=== PATIENT | female | born 1945 | race Caucasian/White ===

== ENCOUNTER 2017-05-15 08:53 | Emergency (ER) | payer OTHER ==
[~2017-05-15] VITALS: Ht 152.4 cm; Wt 83.9 kg
[~2017-05-15 08:53] MED LIST: ALBU90I INH; ALBU90OI INH; ALBU90OI6; ALBU90OI6 INH; ALBU90OI61 INH; ALPR.25 PO; ASPI325; ASPI325 PO; ASPI325EC PO; ATEN25; ATEN50; ATOR40TA; ATOR80 PO; BENZ100A PO; CODGUAEL PO; CYCL10 PO; DOXY100 PO; DULO30; DULO60 PO; ERYT333ERA PO; ESCI20; ESOM20; ESOM20 PO; FISH1000 PO; FLUO10 PO; FLUSAL5005 IH; HYDACE5 PO; LISI10; LISI20 PO; LISI5 PO; LORA10ER; LOVA40 PO; Lisinopril2.5 MG; MAGCHL64ER PO; MECL25 PO; METF500; METF500 PO; METF500C PO; METO50 PO; METO50ER PO; Norco 5-325 Ta1 EACH PO; PRED20 PO; PROM25 PO; Percocet 5-3251 EACH PO; Prednisone50 MG PO; ROSU10TA PO; RXCYCL10 PO; RXHYDACE PO; SPIR25 PO; TELM20 PO; TIOT18 INH; TRIAOI IH; Ultram50 MG PO; Valium5 MG PO
[2017-05-15] MEDS ORDERED: Norco 5-325 Ta1 EACH PO (11:26)
== END 2017-05-15 11:38 | disposition home or self-care (01) ==
LOC: ER 08:53
DX: S62.512A Displaced fracture of proximal phalanx of left thumb, initial encounter for closed fracture (principal); J45.909 Unspecified asthma, uncomplicated; E11.9 Type 2 diabetes mellitus without complications; I10 Essential (primary) hypertension; E78.00 Pure hypercholesterolemia, unspecified; V89.2XXA Person injured in unspecified motor-vehicle accident, traffic, initial encounter
CPT/HCPCS: 29125; 73030; 73110; 73130; 99283

== ENCOUNTER 2017-05-18 07:52 | Emergency (ER) | payer OTHER ==
[~2017-05-18] VITALS: Ht 152.4 cm; Wt 83.9 kg
== END 2017-05-18 09:19 | disposition home or self-care (01) ==
LOC: ER 07:52
DX: S62.512A Displaced fracture of proximal phalanx of left thumb, initial encounter for closed fracture (principal); S63.501A Unspecified sprain of right wrist, initial encounter; J45.909 Unspecified asthma, uncomplicated; E11.9 Type 2 diabetes mellitus without complications; I10 Essential (primary) hypertension; E78.00 Pure hypercholesterolemia, unspecified; V89.2XXA Person injured in unspecified motor-vehicle accident, traffic, initial encounter
CPT/HCPCS: 29125; 73110; 73130; 99283

== ENCOUNTER 2017-05-20 13:03 | Emergency (ER) | payer OTHER ==
[~2017-05-20] VITALS: Ht 152.4 cm; Wt 83.9 kg
== END 2017-05-20 17:20 | disposition home or self-care (01) ==
LOC: ER 13:03
DX: S62.512D Displaced fracture of proximal phalanx of left thumb, subsequent encounter for fracture with routine healing (principal); J45.909 Unspecified asthma, uncomplicated; E11.9 Type 2 diabetes mellitus without complications; I10 Essential (primary) hypertension; E78.00 Pure hypercholesterolemia, unspecified; Z88.0 Allergy status to penicillin; Z88.1 Allergy status to other antibiotic agents; Z79.899 Other long term (current) drug therapy; Z79.82 Long term (current) use of aspirin; V89.2XXA Person injured in unspecified motor-vehicle accident, traffic, initial encounter
CPT/HCPCS: 29125; 99282

== ENCOUNTER 2017-06-09 08:13 | Emergency (ER) | payer OTHER ==
[~2017-06-09] VITALS: Ht 165.1 cm; Wt 81.7 kg
[2017-06-09 10:33] LABS: BASOPHILS ABSOLUTE AUTO 0.05 K/mm3 (0.00-0.23); BASOPHILS PERCENT AUTO 1 % (0-2); EOSINOPHILS ABSOLUTE AUTO 0.03 K/mm3 (0.00-0.68); EOSINOPHILS PERCENT AUTO 0 % (0-6); Hematocrit 37.4 % (33.0-51.0); Hemoglobin 11.4 g/dL (11.5-16.0); IMMATURE GRAN ABSOLUTE AUTO 0.05 K/mm3 (0.00-0.10); IMMATURE GRAN PERCENT AUTO 1 % (0-1); LYMPHOCYTES ABSOLUTE AUTO 0.96 K/mm3 (0.84-5.20); LYMPHOCYTES PERCENT AUTO 12 % (21-46); MONOCYTES ABSOLUTE AUTO 0.59 K/mm3 (0.16-1.47); MONOCYTES PERCENT AUTO 8 % (4-13); Mean Corpuscular HGB Conc 30.5 g/dL (31.5-36.5); Mean Corpuscular Volume 88 fL (80-100); NEUTROPHILS ABSOLUTE AUTO 6.15 K/mm3 (1.96-9.15); NEUTROPHILS PERCENT AUTO 79 % (41-73); RDW Coefficient Variation 13.6 % (11.7-14.2); RDW Standard Deviation 44.2 fL (35.1-46.3); Red Blood Cell Count 4.23 M/mm3 (3.80-5.20); White Blood Cell Count 7.83 K/mm3 (4.00-11.30)
[2017-06-09] MEDS ORDERED: Prednisone20 MG PO (10:42)
[2017-06-09 10:51] LABS: Alanine Aminotransfer (ALT/SGP 12 U/L (12-78); Albumin, Blood 2.5 g/dL (3.4-5.0); Albumin/Globulin Ratio 0.5 (0.8-1.8); Alk Phos 36 U/L (50-136); Anion Gap 7 mmol/L (6-16); Aspartate Aminotrans (AST/SGOT 6 U/L (12-37); Bilirubin, Total 0.5 mg/dL (0.1-1.0); Blood Urea Nitrogen 9 mg/dL (8-24); Bun/Creatinine Ratio 11.6 (12.0-20.0); CO2, Blood 25 mmol/L (21-32); Calcium, Blood 9.2 mg/dL (8.5-10.1); Chloride, Blood 106 mmol/L (98-108); Creatinine, Blood 0.78 mg/dL (0.40-1.00); Globulin, Blood 4.6 g/dL (2.2-4.0); Glomerular Filtration Rate >60 (60-); Glucose, Blood 177 mg/dL (70-99); Potassium, Blood 4.3 mmol/L (3.5-5.5); Sodium, Blood 138 mmol/L (136-145); Total Protein, Blood 7.1 g/dL (6.4-8.2)
[2017-06-09 11:07] LABS: Mean Platelet Volume 11.3 fL (9.1-12.4); Platelet Count 162 K/mm3 (150-400)
== END 2017-06-09 10:56 | disposition home or self-care (01) ==
LOC: ER 08:13
PROVIDERS: Physician Assistant
DX: M47.816 Spondylosis without myelopathy or radiculopathy, lumbar region (principal); M51.36 Other intervertebral disc degeneration, lumbar region; J45.909 Unspecified asthma, uncomplicated; E11.9 Type 2 diabetes mellitus without complications; I10 Essential (primary) hypertension; E78.00 Pure hypercholesterolemia, unspecified; Z79.899 Other long term (current) drug therapy; Z79.82 Long term (current) use of aspirin
CPT/HCPCS: 36415; 72131; 80053; 85025; 96374; 99284; J1885

== ENCOUNTER 2017-07-15 01:57 | Emergency (ER) | payer OTHER ==
[~2017-07-15] VITALS: Ht 165.1 cm; Wt 81.7 kg
[~2017-07-15 01:57] MED LIST changes: +Prednisone20 MG PO
[2017-07-15] MEDS ORDERED: METPRE4DP PO (04:18)
[2017-07-15] MEDS ORDERED: Robaxin-750750 MG PO (04:18)
[2017-07-15] MEDS ORDERED: Acetaminophen-1 EAC1 PO (04:18)
== END 2017-07-15 04:30 | disposition home or self-care (01) ==
LOC: ER 01:57
DX: M54.42 Lumbago with sciatica, left side (principal); E11.9 Type 2 diabetes mellitus without complications; I10 Essential (primary) hypertension; I25.10 Atherosclerotic heart disease of native coronary artery without angina pectoris; I25.2 Old myocardial infarction; J45.909 Unspecified asthma, uncomplicated; K21.9 Gastro-esophageal reflux disease without esophagitis; F32.9 Major depressive disorder, single episode, unspecified; E78.5 Hyperlipidemia, unspecified; Z79.899 Other long term (current) drug therapy; Z79.82 Long term (current) use of aspirin; Z79.51 Long term (current) use of inhaled steroids; Z88.0 Allergy status to penicillin; Z88.1 Allergy status to other antibiotic agents
CPT/HCPCS: 99283

== ENCOUNTER 2017-07-23 05:18 | Emergency (ER) | payer OTHER ==
[~2017-07-23] VITALS: Ht 165.1 cm; Wt 79.8 kg
[~2017-07-23 05:18] MED LIST changes: +Acetaminophen-1 EAC1 PO; +METPRE4DP PO; +Robaxin-750750 MG PO
[2017-07-23] MEDS ORDERED: Neurontin 300300 MG PO (06:30)
== END 2017-07-23 06:49 | disposition home or self-care (01) ==
LOC: ER 05:18
DX: M54.42 Lumbago with sciatica, left side (principal); J45.909 Unspecified asthma, uncomplicated; E11.9 Type 2 diabetes mellitus without complications; I10 Essential (primary) hypertension; E78.00 Pure hypercholesterolemia, unspecified; Z88.0 Allergy status to penicillin; Z88.1 Allergy status to other antibiotic agents; Z79.899 Other long term (current) drug therapy; Z79.82 Long term (current) use of aspirin
CPT/HCPCS: 96372; 99284; J3010

== ENCOUNTER 2018-06-23 06:34 | Emergency (ER) | payer OTHER ==
[~2018-06-23] VITALS: Ht 165.1 cm; Wt 83.9 kg
[~2018-06-23 06:34] MED LIST changes: +Neurontin 300300 MG PO
[2018-06-23] MEDS ORDERED: TUMS500 MG PO (06:54)
[2018-06-23] MEDS ORDERED: Vitamin D400 UNI2 PO (06:55)
[2018-06-23] MEDS ORDERED: SERT100 PO (06:55)
[2018-06-23] MEDS ORDERED: Fish Oil Conc1000 MG PO (06:56)
== END 2018-06-23 07:45 | disposition home or self-care (01) ==
LOC: ER 06:34
DX: S93.602A Unspecified sprain of left foot, initial encounter (principal); E11.9 Type 2 diabetes mellitus without complications; I10 Essential (primary) hypertension; I25.2 Old myocardial infarction; Z88.0 Allergy status to penicillin; Z79.899 Other long term (current) drug therapy; X58.XXXA Exposure to other specified factors, initial encounter
CPT/HCPCS: 73630; 99283-25

== ENCOUNTER 2018-08-21 08:24 | Emergency (ER) | payer OTHER ==
[~2018-08-21] VITALS: Ht 165.1 cm; Wt 86.6 kg
[~2018-08-21 08:24] MED LIST changes: +Fish Oil Conc1000 MG PO; +SERT100 PO; +TUMS500 MG PO; +Vitamin D400 UNI2 PO
[2018-08-21] MEDS ORDERED: Metformin HCl500 M1 PO (08:43)
== END 2018-08-21 09:50 | disposition home or self-care (01) ==
LOC: ER 08:24
DX: S80.02XA Contusion of left knee, initial encounter (principal); S90.32XA Contusion of left foot, initial encounter; E11.9 Type 2 diabetes mellitus without complications; I10 Essential (primary) hypertension; I25.2 Old myocardial infarction; K21.9 Gastro-esophageal reflux disease without esophagitis; J45.909 Unspecified asthma, uncomplicated; E78.5 Hyperlipidemia, unspecified; Z88.0 Allergy status to penicillin; Z79.899 Other long term (current) drug therapy; W01.0XXA Fall on same level from slipping, tripping and stumbling without subsequent striking against object, initial encounter
CPT/HCPCS: 73564; 73630; 99283-25

== ENCOUNTER 2019-03-06 07:57 | Emergency (ER) | payer OTHER ==
[~2019-03-06] VITALS: Ht 165.1 cm; Wt 88.5 kg
[~2019-03-06 07:57] MED LIST changes: +Metformin HCl500 M1 PO
== END 2019-03-06 09:46 | disposition home or self-care (01) ==
LOC: ER 07:57
DX: J02.8 Acute pharyngitis due to other specified organisms (principal); I10 Essential (primary) hypertension; E11.9 Type 2 diabetes mellitus without complications; J45.909 Unspecified asthma, uncomplicated; E78.00 Pure hypercholesterolemia, unspecified; M54.9 Dorsalgia, unspecified; G89.29 Other chronic pain; Z88.0 Allergy status to penicillin; Z88.8 Allergy status to other drugs, medicaments and biological substances; Z79.84 Long term (current) use of oral hypoglycemic drugs; Z79.899 Other long term (current) drug therapy
CPT/HCPCS: 87081; 87430; 99283

== ENCOUNTER → 2020-08-12 | Outpatient (CLI) | payer OTHER ==
[~2020-08-12] MED LIST changes: +ATOR20 PO; +CALCIUM 600 +1 EA11; +PROAIR DIGIHAL90 MCG IH
[2020-08-12 11:54] LABS: BASOPHILS ABSOLUTE AUTO 0.05 K/mm3 (0.00-0.23); BASOPHILS PERCENT AUTO 1 % (0-2); EOSINOPHILS ABSOLUTE AUTO 0.23 K/mm3 (0.00-0.68); EOSINOPHILS PERCENT AUTO 3 % (0-6); Hematocrit 42.2 % (33.0-51.0); Hemoglobin 13.6 g/dL (11.5-16.0); IMMATURE GRAN ABSOLUTE AUTO 0.04 K/mm3 (0.00-0.10); IMMATURE GRAN PERCENT AUTO 1 % (0-1); LYMPHOCYTES ABSOLUTE AUTO 1.54 K/mm3 (0.84-5.20); LYMPHOCYTES PERCENT AUTO 23 % (21-46); MONOCYTES ABSOLUTE AUTO 0.49 K/mm3 (0.16-1.47); MONOCYTES PERCENT AUTO 7 % (4-13); Mean Corpuscular HGB 28.3 pg (26.0-34.0); Mean Corpuscular HGB Conc 32.2 g/dL (31.5-36.5); Mean Corpuscular Volume 88 fL (80-100); NEUTROPHILS ABSOLUTE AUTO 4.42 K/mm3 (1.96-9.15); NEUTROPHILS PERCENT AUTO 65 % (41-73); Platelet Count 258 K/mm3 (150-400); RDW Coefficient Variation 13.6 % (11.7-14.2); RDW Standard Deviation 43.3 fL (35.1-46.3); White Blood Cell Count 6.77 K/mm3 (4.00-11.30)
[2020-08-12 12:12] LABS: Albumin, Blood 3.7 g/dL (3.4-5.0); Albumin/Globulin Ratio 0.9 (0.8-1.8); Bilirubin, Total 0.6 mg/dL (0.1-1.0); Bun/Creatinine Ratio 15.7 (12.0-20.0); Creatinine, Blood 1.02 mg/dL (0.40-1.00); Free Thyroxine 1.27 ng/dL (0.70-1.60); Globulin, Blood 3.9 g/dL (2.2-4.0); Potassium, Blood 4.1 mmol/L (3.5-5.5); Thyroid Stimulating Hormone 1.19 uIU/mL (0.360-4.800); Total Protein, Blood 7.6 g/dL (6.4-8.2)
== END | disposition home or self-care (01) ==
LOC: LAB SHORT 11:49
PROVIDERS: General Practice
DX: R11.2 Nausea with vomiting, unspecified (principal); N39.0 Urinary tract infection, site not specified; R53.81 Other malaise
CPT/HCPCS: 80053; 82150; 84439; 84443; 85025; 87077; 87086; 87186

== ENCOUNTER 2021-02-03 11:11 | Emergency (ER) | payer OTHER ==
[~2021-02-03] VITALS: Ht 167.6 cm; Wt 72.1 kg
[2021-02-03 11:32] LABS: Source, Urine Clean Catch
[2021-02-03 11:42] LABS: Blood, Urine 2+ (Neg); Glucose Qualitative, Urine Neg (Neg); Ketones, Urine 1+ (Neg); Leukocyte Esterase, Urine 3+ (Neg); Nitrite, Urine Neg (Neg); Protein, Urine 2+ (Neg); Urobilinogen, Urine NORM (Normal)
[2021-02-03 12:00] LABS: Bilirubin, Urine 1+ (Neg)
[2021-02-03 12:16] LABS: BASOPHILS ABSOLUTE AUTO 0.02 K/mm3 (0.00-0.23); BASOPHILS PERCENT AUTO 0 % (0-2); EOSINOPHILS ABSOLUTE AUTO 0.05 K/mm3 (0.00-0.68); EOSINOPHILS PERCENT AUTO 1 % (0-6); Hematocrit 43.7 % (33.0-51.0); Hemoglobin 13.9 g/dL (11.5-16.0); IMMATURE GRAN ABSOLUTE AUTO 0.06 K/mm3 (0.00-0.10); IMMATURE GRAN PERCENT AUTO 1 % (0-1); LYMPHOCYTES ABSOLUTE AUTO 1.17 K/mm3 (0.84-5.20); LYMPHOCYTES PERCENT AUTO 11 % (21-46); MONOCYTES ABSOLUTE AUTO 0.85 K/mm3 (0.16-1.47); MONOCYTES PERCENT AUTO 8 % (4-13); Mean Corpuscular HGB Conc 31.8 g/dL (31.5-36.5); Mean Corpuscular Volume 88 fL (80-100); Mean Platelet Volume 9.9 fL (9.1-12.4); NEUTROPHILS ABSOLUTE AUTO 8.24 K/mm3 (1.96-9.15); NEUTROPHILS PERCENT AUTO 79 % (41-73); Platelet Count 309 K/mm3 (150-400); RDW Coefficient Variation 13.3 % (11.7-14.2); RDW Standard Deviation 43.2 fL (35.1-46.3); Red Blood Cell Count 4.97 M/mm3 (3.80-5.20); White Blood Cell Count 10.39 K/mm3 (4.00-11.30)
[2021-02-03 12:21] LABS: Appearance, Urine Hazy (Clear); Color, Urine Yellow (P-Yellow)
[2021-02-03 12:24] LABS: White Blood Cells, Urine 25-50 /hpf (0-5)
[2021-02-03 12:25] LABS: Squamous Epithelial Cells Rare /hpf (Few)
[2021-02-03 12:26] LABS: Bacteria Many /hpf
[2021-02-03 12:27] LABS: Hyaline Casts 0-2 /lpf (0-2); Mucus Light (0-Heavy)
[2021-02-03 12:55] LABS: Alanine Aminotransfer (ALT/SGP 16 U/L (12-78); Albumin, Blood 2.6 g/dL (3.4-5.0); Albumin/Globulin Ratio 0.5 (0.8-1.8); Alk Phos 31 U/L (50-136); Anion Gap 10 mmol/L (6-16); Aspartate Aminotrans (AST/SGOT 35 U/L (12-37); Bilirubin, Total 0.7 mg/dL (0.1-1.0); Blood Urea Nitrogen 21 mg/dL (8-24); Bun/Creatinine Ratio 24.8 (12.0-20.0); CO2, Blood 26 mmol/L (21-32); Calcium, Blood 9.9 mg/dL (8.5-10.1); Chloride, Blood 104 mmol/L (98-108); Creatinine, Blood 0.85 mg/dL (0.40-1.00); Globulin, Blood 5.7 g/dL (2.2-4.0); Glomerular Filtration Rate >60 (60-); Glucose, Blood 197 mg/dL (70-99); Potassium, Blood 3.6 mmol/L (3.5-5.5); Sodium, Blood 140 mmol/L (136-145); Total Protein, Blood 8.3 g/dL (6.4-8.2); Troponin I <0.015 ng/mL (0.000-0.040)
[2021-02-03] MEDS ORDERED: Inderal80 MG (13:47)
[2021-02-03] MEDS ORDERED: TOLT4 PO (13:48)
[2021-02-03] MEDS ORDERED: CEPH500 PO (13:56)
[2021-02-04] MEDS ORDERED: ACET500 PO (00:38)
[2021-02-06] MEDS ORDERED: ABILIFY5 MG PO (12:12)
[2021-02-06] MEDS ORDERED: NITR100CA PO (17:13)
== END 2021-02-03 14:57 | disposition home or self-care (01) ==
LOC: ER 11:11
PROVIDERS: Emergency Medicine
DX: N39.0 Urinary tract infection, site not specified (principal); E11.9 Type 2 diabetes mellitus without complications; I10 Essential (primary) hypertension; I25.10 Atherosclerotic heart disease of native coronary artery without angina pectoris; I25.2 Old myocardial infarction; J45.909 Unspecified asthma, uncomplicated; K21.9 Gastro-esophageal reflux disease without esophagitis; E78.5 Hyperlipidemia, unspecified; F03.90 Unspecified dementia, unspecified severity, without behavioral disturbance, psychotic disturbance, mood disturbance, and anxiety; Z88.0 Allergy status to penicillin; Z88.8 Allergy status to other drugs, medicaments and biological substances; Z79.82 Long term (current) use of aspirin; Z79.84 Long term (current) use of oral hypoglycemic drugs; Z79.899 Other long term (current) drug therapy
CPT/HCPCS: 51701; 71045; 80053; 81001; 84443; 84484; 85025; 87077; 87086; 87186; A9270

== ENCOUNTER 2021-02-03 21:37 | Emergency (ER) | payer OTHER ==
[~2021-02-03] VITALS: Ht 170.2 cm; Wt 81.7 kg
[~2021-02-03 21:37] MED LIST changes: +CEPH500 PO; +Inderal80 MG; +TOLT4 PO
[2021-02-04] MEDS ORDERED: ACET500 PO (00:38)
[2021-02-06] MEDS ORDERED: ABILIFY5 MG PO (12:12)
[2021-02-06] MEDS ORDERED: NITR100CA PO (17:13)
== END 2021-02-04 01:50 | disposition home or self-care (01) ==
LOC: ER 21:37
DX: M54.50 Low back pain, unspecified (principal); G89.29 Other chronic pain; F03.90 Unspecified dementia, unspecified severity, without behavioral disturbance, psychotic disturbance, mood disturbance, and anxiety; E11.9 Type 2 diabetes mellitus without complications; I10 Essential (primary) hypertension; I25.2 Old myocardial infarction; E78.00 Pure hypercholesterolemia, unspecified; J44.9 Chronic obstructive pulmonary disease, unspecified; Z88.0 Allergy status to penicillin; Z79.899 Other long term (current) drug therapy; W05.0XXA Fall from non-moving wheelchair, initial encounter
CPT/HCPCS: 70450; 72100; A9270; J1885

== ENCOUNTER 2021-02-09 11:01 | Inpatient (IN) | payer OTHER ==
[~2021-02-09] VITALS: Ht 175.3 cm; Wt 88.5 kg
[~2021-02-09 11:01] MED LIST changes: +ABILIFY5 MG PO; +ACET500 PO; -CALCIUM 600 +1 EA11; +CALCIUM 600 +1 EA11 PO; +NITR100CA PO
[2021-02-09 12:15] LABS: Source, Urine Catheter
[2021-02-09 12:23] LABS: Appearance, Urine Clear (Clear); Bilirubin, Urine Neg (Neg); Blood, Urine 4+ (Neg); Color, Urine Yellow (P-Yellow); Glucose Qualitative, Urine Neg (Neg); Ketones, Urine 1+ (Neg); Leukocyte Esterase, Urine 1+ (Neg); Nitrite, Urine Pos (Neg); Protein, Urine 2+ (Neg); Urobilinogen, Urine NORM (Normal)
[2021-02-09 13:05] LABS: Bacteria Many /hpf; Squamous Epithelial Cells Rare /hpf (Few)
[2021-02-09 13:07] LABS: Amorphous Light (0-Heavy)
[2021-02-09 13:28] LABS: BASOPHILS ABSOLUTE AUTO 0.08 K/mm3 (0.00-0.23); BASOPHILS PERCENT AUTO 1 % (0-2); EOSINOPHILS ABSOLUTE AUTO 0.24 K/mm3 (0.00-0.68); EOSINOPHILS PERCENT AUTO 2 % (0-6); Hematocrit 39.3 % (33.0-51.0); Hemoglobin 12.7 g/dL (11.5-16.0); IMMATURE GRAN ABSOLUTE AUTO 0.36 K/mm3 (0.00-0.10); IMMATURE GRAN PERCENT AUTO 3 % (0-1); LYMPHOCYTES ABSOLUTE AUTO 0.96 K/mm3 (0.84-5.20); LYMPHOCYTES PERCENT AUTO 7 % (21-46); MONOCYTES ABSOLUTE AUTO 1.01 K/mm3 (0.16-1.47); MONOCYTES PERCENT AUTO 7 % (4-13); Mean Corpuscular HGB Conc 32.3 g/dL (31.5-36.5); Mean Corpuscular Volume 87 fL (80-100); Mean Platelet Volume 10.4 fL (9.1-12.4); NEUTROPHILS ABSOLUTE AUTO 11.43 K/mm3 (1.96-9.15); NEUTROPHILS PERCENT AUTO 81 % (41-73); NRBC ABSOLUTE 0.02 K/mm3 (0.00-0.02); NRBC Auto 0.1 /100 WBC (0.0-0.2); Platelet Count 395 K/mm3 (150-400); RDW Coefficient Variation 13.8 % (11.7-14.2); RDW Standard Deviation 43.6 fL (35.1-46.3); Red Blood Cell Count 4.53 M/mm3 (3.80-5.20); White Blood Cell Count 14.08 K/mm3 (4.00-11.30)
[2021-02-09 14:10] LABS: Bun/Creatinine Ratio 51.5 (12.0-20.0); Calcium, Blood 9.2 mg/dL (8.5-10.1); Creatinine, Blood 1.3 mg/dL (0.40-1.00); Potassium, Blood 6.1 mmol/L (3.5-5.5)
--- NOTE | 2021-02-09 18:35 | NUR ---
CARE NOTE PT NOT ABLE TO COMMUNICATE MEDICAL HISTORY. ROCHE CATHETER IN PLACE AND DRAINING LIGHT BROWN OUTPUT. PT BOTTOM AND COCCYX AREA IS RED AND EXCORIATED, PT PROPPED ON PILLOWS TO KEEP OFF BOTTOM AREA. STELLA FARRIS CLEANED WOUND AREA ON BOTTOM.
[2021-02-09 19:14] LABS: Bun/Creatinine Ratio 51.6 (12.0-20.0); Calcium, Blood 9.9 mg/dL (8.5-10.1); Creatinine, Blood 1.26 mg/dL (0.40-1.00); Potassium, Blood 4.5 mmol/L (3.5-5.5)
--- NOTE | 2021-02-10 02:20 | NUR ---
ASSUMED CARE OF PATIENT AT 1900. ROSANNA A/O. PATIENT ONLY RESPONDING TO PHYSICAL STIMULUS (NOT BASELINE). CONTRACTS ARMS CLOSE TO CHEST. INCOMPREHENSIBLE SPEECH WITH MOVEMENT OF PATIENT. MAINTAINS OVER 95% ON RA, DIM LS T/O. ST ON MONITOR 90-100'S. BLE REDNESS AND SWELLING (NONPITTING), WARM TO TOUCH. PATIENT'S TEMPERATURE RETURNED TO BASELINE. ROCHE DRAINING TEA COLORED URINE TO GRAVITY. MULTIPLE BUTTOCK, BREAST AND PERIANAL WOUNDS NOTED (PHOTOS IN CHART). SOFT BP WITH SBP IN 90'S AT TIMES, HOWEVER MAP STAYING AROUND 70-75. PATIENT SEEMS TO BE A BIT MORE RESPONSIVE AFTER INITIATION OF FLUIDS. WILL UPDATE CHANGES OCCUR.
[2021-02-10 04:35] LABS: Albumin, Blood 1.6 g/dL (3.4-5.0); Albumin/Globulin Ratio 0.4 (0.8-1.8); Bilirubin, Total 0.5 mg/dL (0.1-1.0); Bun/Creatinine Ratio 48.3 (12.0-20.0); Calcium, Blood 8.9 mg/dL (8.5-10.1); Creatinine, Blood 1.16 mg/dL (0.40-1.00); Globulin, Blood 4.1 g/dL (2.2-4.0); Magnesium, Blood 1.6 mg/dL (1.6-2.4); Total Protein, Blood 5.7 g/dL (6.4-8.2)
[2021-02-10 05:54] LABS: BASOPHILS ABSOLUTE AUTO 0.05 K/mm3 (0.00-0.23); BASOPHILS PERCENT AUTO 1 % (0-2); EOSINOPHILS ABSOLUTE AUTO 0.03 K/mm3 (0.00-0.68); EOSINOPHILS PERCENT AUTO 0 % (0-6); Hematocrit 32.5 % (33.0-51.0); Hemoglobin 10.6 g/dL (11.5-16.0); IMMATURE GRAN ABSOLUTE AUTO 0.25 K/mm3 (0.00-0.10); IMMATURE GRAN PERCENT AUTO 2 % (0-1); LYMPHOCYTES ABSOLUTE AUTO 1.13 K/mm3 (0.84-5.20); LYMPHOCYTES PERCENT AUTO 11 % (21-46); MONOCYTES ABSOLUTE AUTO 1.03 K/mm3 (0.16-1.47); MONOCYTES PERCENT AUTO 10 % (4-13); Mean Corpuscular HGB 28.3 pg (26.0-34.0); Mean Corpuscular HGB Conc 32.6 g/dL (31.5-36.5); Mean Corpuscular Volume 87 fL (80-100); Mean Platelet Volume 10.3 fL (9.1-12.4); NEUTROPHILS ABSOLUTE AUTO 8.18 K/mm3 (1.96-9.15); NEUTROPHILS PERCENT AUTO 77 % (41-73); NRBC ABSOLUTE 0.03 K/mm3 (0.00-0.02); NRBC Auto 0.3 /100 WBC (0.0-0.2); Platelet Count 344 K/mm3 (150-400); RDW Coefficient Variation 14.1 % (11.7-14.2); RDW Standard Deviation 44.5 fL (35.1-46.3); Red Blood Cell Count 3.75 M/mm3 (3.80-5.20); White Blood Cell Count 10.67 K/mm3 (4.00-11.30)
--- NOTE | 2021-02-10 10:59 | NUR ---
PER WOUND CENTER NURSE A CALCIUM ALGINATE DRESSING TO NECROTIC APPEARING AREAS OF BUTTOCK, THEN APPLY A JERALD THICK LAYER OF BARRIER CREAM TO THE REDDENED AREAS AND COVER WITH CHUX. DR ABERNATHY IS UPDATED ABOUT THIS SUGGESTION. WOUND WAS DRESSED MENTIONED ABOVE. WILL REASSESS Q2 HOURS WITH EACH TURN
--- NOTE | 2021-02-10 18:28 | NUR ---
PT REMAINS WITH AMS, PT SCREAMS OUT WHEN TOUCHED OR MOVED, OTHERWISE NO OTHER VERBAL RESPONSE FROM PT. PT TREATED T/O THE DAY FOR PAIN SHE GRIMACES WITHOUT STIMULI. VSS. NS INFUSING AT THIS. INSULIN WAS HELD THIS EVENING FOR GLUCOSE OF 156 PT WILL BE NPO UNTIL MENTATION CLEARS. SEE NOTE ABOUT BUTTOCK WOUND DRESSING. PT TURNED Q2 HOURS WITH AIDE, AND BUTTOCK WOUND INSPECTED WITH EACH TURN AND BARRIER CREAM APPLIED.
[2021-02-11 04:14] LABS: BASOPHILS ABSOLUTE AUTO 0.05 K/mm3 (0.00-0.23); BASOPHILS PERCENT AUTO 1 % (0-2); EOSINOPHILS ABSOLUTE AUTO 0.01 K/mm3 (0.00-0.68); EOSINOPHILS PERCENT AUTO 0 % (0-6); Hematocrit 28.3 % (33.0-51.0); Hemoglobin 9.2 g/dL (11.5-16.0); IMMATURE GRAN ABSOLUTE AUTO 0.44 K/mm3 (0.00-0.10); IMMATURE GRAN PERCENT AUTO 5 % (0-1); LYMPHOCYTES ABSOLUTE AUTO 1.03 K/mm3 (0.84-5.20); LYMPHOCYTES PERCENT AUTO 11 % (21-46); MONOCYTES ABSOLUTE AUTO 0.84 K/mm3 (0.16-1.47); MONOCYTES PERCENT AUTO 9 % (4-13); Mean Corpuscular HGB 28.2 pg (26.0-34.0); Mean Corpuscular HGB Conc 32.5 g/dL (31.5-36.5); Mean Corpuscular Volume 87 fL (80-100); Mean Platelet Volume 10.1 fL (9.1-12.4); NEUTROPHILS PERCENT AUTO 75 % (41-73); NRBC ABSOLUTE 0.02 K/mm3 (0.00-0.02); NRBC Auto 0.2 /100 WBC (0.0-0.2); Platelet Count 302 K/mm3 (150-400); RDW Coefficient Variation 14.1 % (11.7-14.2); Red Blood Cell Count 3.26 M/mm3 (3.80-5.20); White Blood Cell Count 9.57 K/mm3 (4.00-11.30)
[2021-02-11 05:06] LABS: Alanine Aminotransfer (ALT/SGP 32 U/L (12-78); Albumin, Blood 1.4 g/dL (3.4-5.0); Albumin/Globulin Ratio 0.5 (0.8-1.8); Alk Phos 27 U/L (50-136); Anion Gap 7 mmol/L (6-16); Aspartate Aminotrans (AST/SGOT 91 U/L (12-37); Bilirubin, Total 0.5 mg/dL (0.1-1.0); Blood Urea Nitrogen 21 mg/dL (8-24); CO2, Blood 24 mmol/L (21-32); Chloride, Blood 117 mmol/L (98-108); Creatinine, Blood 0.78 mg/dL (0.40-1.00); Glomerular Filtration Rate >60 (60-); Glucose, Blood 178 mg/dL (70-99); Magnesium, Blood 1.7 mg/dL (1.6-2.4); Potassium, Blood 3.7 mmol/L (3.5-5.5); Sodium, Blood 148 mmol/L (136-145); Total Protein, Blood 4.4 g/dL (6.4-8.2)
--- NOTE | 2021-02-11 05:58 | NUR ---
SHIFT SUMMARY ASSUMED CARE OF PT AT 1900. PT WILL NOT OPEN EYES TO ANY KIND OF STIMULUS. PT WILL CURSE AND TRY TO PUSH STAFF AWAY WHEN BEING TOUCHED IN ANY WAY. PT WILL CALL OUT PROFANITIES WHEN BEING CLEANED.HEART SOUNDS REGULAR. LUNG SOUNDS DIMINISHED. PT HAD A ROCHE DRAIING WITH GRAVITY. PT BUTTOCK HAS DEEP TISSUE PRESSURE SORE. CALCIUM ALGINATE APPLIED. PT ALSO HAD A DARK WOUND ON HER L INSIDE OF HER HEEL. CALL LIGHT IN REACH, BED IN LOWEST POSTION, BED ALARM ON.
--- NOTE | 2021-02-11 18:06 | NUR ---
REMAINS CONFUSED, ROSANNA ORIENTATION- PT ONLY MOANS AND/OR WITHDRAWS FROM PAIN. PPN STARTED. ABX ADJUSTED. PRN PAIN MEDS X1. FC MAINTAINED D/T STRICT I&O. NO BM. FREQUENT ROUNDS TO ENSURE PT SAFETY. REPOSITIONED Q2HRS FOR PRESSURE ULCER PREVENTION. PT IN NO APPARENT DISTRESS AT THIS TIME. WILL CONTINUE TO MONITOR UNTIL TRANSFER OF CARE TO ONCOMING RN.
[2021-02-12 05:00] LABS: Anion Gap 7 mmol/L (6-16); Blood Urea Nitrogen 17 mg/dL (8-24); Bun/Creatinine Ratio 28.1 (12.0-20.0); CO2, Blood 26 mmol/L (21-32); Chloride, Blood 109 mmol/L (98-108); Creatinine, Blood 0.61 mg/dL (0.40-1.00); Glomerular Filtration Rate >60 (60-); Glucose, Blood 228 mg/dL (70-99); Potassium, Blood 3.5 mmol/L (3.5-5.5); Sodium, Blood 142 mmol/L (136-145)
--- NOTE | 2021-02-12 06:09 | NUR ---
SHIFT SUMMARY ASSUMED CARE OF PT AT 1900. PT BECAME MORE ALERT THIS AM. PT WAS BALE TO UNDERSTAND WHAT WAS HAPPENING IN THE ROOM AND OPENED HER EYES SLIGHTLY THIS AM. PT STILL TIGHTENS BODY AND YELLS PROFANITIES WHEN TOUCHED. HEART SOUNDS REGULAR. LUNG SOUNDS CLEAR. PT HAS A ROCHE DRAINING WITH GRAVITY. DRESSING ON BOTTOM CHANGED. THERE IS A SMALL AMOUNT OF BLEEDING AROUND WOUND. CALL LIGHT IN REACH, BED IN LOWEST POSTION.
--- NOTE | 2021-02-12 18:06 | NUR ---
PT MENTATION IMPROVING THROUGHOUT SHIFT. NO C/O PAIN. AFEBRILE. IV ABX ADJUSTED. FC REMAINS IN PLACE FOR STRICT I&O MONITORING. NO BM. REMAINS ON CLINIMIX- MAY BE APPROPRIATE FOR SPEECH EVAL TOMORROW IF MENTAL STATUS CONTINUES TO IMPROVE. FREQUENT ROUNDS TO ENSURE PT SAFETY. REPOSITIONED Q2HRS TO PREVENT WORSENING OF PRESSURE ULCERS. PT IN NO APPARENT DISTRESS AT THIS TIME. WILL CONTINUE TO MONITOR UNTIL TRANSFER OF CARE TO ONCOMING RN.
[2021-02-13 05:28] LABS: Anion Gap 4 mmol/L (6-16); Blood Urea Nitrogen 19 mg/dL (8-24); Bun/Creatinine Ratio 33.7 (12.0-20.0); CO2, Blood 27 mmol/L (21-32); Calcium, Blood 8.5 mg/dL (8.5-10.1); Chloride, Blood 105 mmol/L (98-108); Creatinine, Blood 0.56 mg/dL (0.40-1.00); Glomerular Filtration Rate >60 (60-); Glucose, Blood 193 mg/dL (70-99); Magnesium, Blood 1.7 mg/dL (1.6-2.4); Potassium, Blood 3.8 mmol/L (3.5-5.5); Sodium, Blood 136 mmol/L (136-145)
--- NOTE | 2021-02-13 07:27 | NUR ---
SHIFT SUMMARY PT HAS BEEN VERY AGITATED T/O THE NIGHT. WHEN REPOSITIONING AND ATTEMPTING CARE PT WILL SAY PROFANITIES AND SAY SHE HASN'T SLEPT, MOST WORDS ARE CLEAR. PT WILL NOT OPEN EYES. PT DENIES PAIN BUT YELLS WHEN RESPOSITIONED AND ONCE HANDS ARE OFF PT IS SLEEPING. SHE HAS SLEPT T/O THE NIGHT. CALL LIGHT IS WITHIN REACH BUT IS UNABLE TO USE IT. ROCHE IS IN PLACE AND DRAINING TO GRAVITY. CLINIMIX IS INFUSING. PT IS NPO.
--- NOTE | 2021-02-13 09:47 | NUR ---
Pt is dioriented x4 and is lethargic. Will wake up and say a few words, but falls right back to sleep. VSS on RA. Navas in place and draining well. Q2 turns. Buttocks pressure ulcer present prior to admission, float hip to help with pain and further breakdown. Powerglide was placed this AM. Clinimix is running 100kl/hr. Dietition came by today saying they stock of clinimix is running low and will notify MD for possible different option of nutrition. No tele. CBGs Q6.
--- NOTE | 2021-02-13 10:19 | NUR ---
Dressing change on unstagable buttock wound. Alginate wound dressing applied.
--- NOTE | 2021-02-13 10:38 | NUR ---
Report given to Kendra FARRIS.
--- NOTE | 2021-02-13 11:00 | NUR ---
PT TRANSFERRED FROM PCU, ARRIVES TO THIS FLOOR AT APPROXIMATELY 1045, VIA BED. VSS OBTAINED AND DOCUMENTED, STABLE. HEAD TO TOE ASSESSMENT COMPLETED AND DOCUMENTED. PT DENIES PAIN, THO YELLS WHEN BEING MOVED FOR REPOSITIONING. BED IN LOWEST AND LOCKING POSITION. HOURLY ROUNDING DONE. KEPT NPO, AND MOUTHCARE RENDERED. WOUND TO BUTTOCKS, BUTTOCKS FLOATED WITH PILLOW. IV MED INFUSING PER ORDER. WILL CONTINUE TO MONITOR PT.
[2021-02-14 05:43] LABS: BASOPHILS ABSOLUTE AUTO 0.02 K/mm3 (0.00-0.23); BASOPHILS PERCENT AUTO 0 % (0-2); EOSINOPHILS ABSOLUTE AUTO 0.05 K/mm3 (0.00-0.68); EOSINOPHILS PERCENT AUTO 1 % (0-6); Hematocrit 33.5 % (33.0-51.0); Hemoglobin 10.8 g/dL (11.5-16.0); IMMATURE GRAN ABSOLUTE AUTO 0.16 K/mm3 (0.00-0.10); IMMATURE GRAN PERCENT AUTO 2 % (0-1); LYMPHOCYTES ABSOLUTE AUTO 1.18 K/mm3 (0.84-5.20); LYMPHOCYTES PERCENT AUTO 13 % (21-46); MONOCYTES ABSOLUTE AUTO 0.64 K/mm3 (0.16-1.47); MONOCYTES PERCENT AUTO 7 % (4-13); Mean Corpuscular HGB 27.4 pg (26.0-34.0); Mean Corpuscular HGB Conc 32.2 g/dL (31.5-36.5); Mean Corpuscular Volume 85 fL (80-100); Mean Platelet Volume 9.8 fL (9.1-12.4); NEUTROPHILS PERCENT AUTO 77 % (41-73); Platelet Count 343 K/mm3 (150-400); RDW Coefficient Variation 14.1 % (11.7-14.2); RDW Standard Deviation 43.7 fL (35.1-46.3); Red Blood Cell Count 3.94 M/mm3 (3.80-5.20); White Blood Cell Count 9.05 K/mm3 (4.00-11.30)
--- NOTE | 2021-02-14 06:09 | NUR ---
SHIFT SUMMARY PATIENT LETHARGIC, RESPONDS ONLY TO PAINFUL STIMULI. DRESSING ON COCCYX CHANGED. NO ACUTE ISSUES NOTED OVERNIGHT. BED IN LOWEST POSITION WITH WHEELS LOCKED AND ALARM ON. CALL LIGHT WITHIN REACH. REPORT GIVEN TO ONCOMING RN.
[2021-02-14 06:35] LABS: Anion Gap 8 mmol/L (6-16); Blood Urea Nitrogen 21 mg/dL (8-24); Bun/Creatinine Ratio 35.3 (12.0-20.0); CO2, Blood 24 mmol/L (21-32); Calcium, Blood 8.7 mg/dL (8.5-10.1); Chloride, Blood 104 mmol/L (98-108); Glomerular Filtration Rate >60 (60-); Glucose, Blood 200 mg/dL (70-99); Magnesium, Blood 1.7 mg/dL (1.6-2.4); Potassium, Blood 4.8 mmol/L (3.5-5.5); Sodium, Blood 136 mmol/L (136-145)
--- NOTE | 2021-02-14 14:51 | NUR ---
Spoke to pt's grandson Miguel Angel. He reports pt has been declining for a while prior to this hospitalization. He has been her primary care provider, and reports he is the primary decision maker for her. At his visit with her yesterday, he noted the major changes in her, and said she pushed him away and didn't seem to recognize him. He also tells me pt was diagnosed with dementia 3 months ago, and she had begun to make statements even then about being "done". We discussed at length the pt's UTI is improving, but her demeanor has remained the same. Miguel Angel states he does not want to pursue anything more for the patient, in terms of tube feeding, or even a dobhoff, as this is not what she would want either. He does report he wouldn't be able to care for her, and plans to move from their shared rented home. I tell him this is the piece the Care Management team will follow up on. He does request a call from one of his grandma's physicians. I passed the message along to Dr Dinero, and gave Miguel Angel the Palliative care number in case he has any further questions or concerns.
--- NOTE | 2021-02-14 17:44 | NUR ---
SHIFT SUMMARY PT AxOx0. SLEEPING ALL DAY. RESPONDS ONLY TO PHYSICAL STIMULATION- ROLLING OR TURNING FOR REPOSITIONING/CHANGING WITH MOANS, SHOUTING OR GRIMACES. PT HAS +2 EDEMA TO BLE AND DEPENDENT EDEMA TO BUE. EXTREMITIES ELEVATED WITH PILLOWS. ON BEDREST WITH Q2 TURNS. SWALLOW EVAL ATTEMPTED TODAY, BUT PATIENT UNABLE TO WAKE UP TO COOPERATE. OXIDIZED FINISH PLATER RECOMMENDING NG TUBE FOR NUTRITION. DR DE LUNA, WILL CONSIDER OPTIONS. CURRENTLY GETTING IV CLINIMIX AT THIS TIME. COCCYX WOUND DRESSED, C/D/I. WOUND CARE CONSULT SCHEDULED FOR THE MORNIN02/16/20. PT CURRENTLY RESTING IN BED WITH CALL LIGHT IN REACH. APPEARS COMFORTABLE AT THIS TIME.
--- NOTE | 2021-02-15 03:46 | NUR ---
FEED CRUSHER OPERATOR REPORTS PATIENT [address] 139 AT SHIFT CHANGE. PATIENT PLACED ON TELEMETRY THIS SHIFT BY HOSPITALIST DR BRYANT. HOSPITALIST DR MICHAEL REPORTS TO CONTINUE TO MONITOR.
--- NOTE | 2021-02-15 05:29 | NUR ---
SHIFT SUMMARY 75 YR F ADMITTED ON 02/09/21 FOR ALTERED MENTAL STATUS. DNR SHE IS POSITIVE FOR UTI AND SEPSIS. SHE IS BED BOUND. SHE HAS A LARGE PRESSURE ULCER ON HER BOTTOM THAT IS COVERED AND NOT OBSERVED DURING THIS SHIFT PT SLEPT THE ENTIRE SHIFT. SHE IS NPO AND HAS A ROCHE. SHE IS AROUSABLE AND GETS UPSET WHEN SHE IS MESSED WITH. SHE DOES NOT WANT TO OPEN HER EYES. HER EXTREMITIES ARE SWOLLEN AND HER LIMBS APPEAR TO BE A BIT RETRACTED. HR HAS BEEN HIGH TODAY AT 139 SO TELE WAS ORDERED. SHE IS NOW SINUS TACHY AT 134. PT HAS A RIGHT UPPER POWERGLIDE AND AN IV IN THE LEFT FOREARM.
[2021-02-15 05:49] LABS: Anion Gap 5 mmol/L (6-16); Blood Urea Nitrogen 24 mg/dL (8-24); Bun/Creatinine Ratio 45.5 (12.0-20.0); CO2, Blood 26 mmol/L (21-32); Calcium, Blood 8.7 mg/dL (8.5-10.1); Chloride, Blood 106 mmol/L (98-108); Creatinine, Blood 0.53 mg/dL (0.40-1.00); Glomerular Filtration Rate >60 (60-); Glucose, Blood 186 mg/dL (70-99); Potassium, Blood 5.1 mmol/L (3.5-5.5); Sodium, Blood 137 mmol/L (136-145)
--- NOTE | 2021-02-15 10:52 | NUR ---
CALLED DR CUNNINGHAM, SPOKE WITH DR ENAMORADO, NOTIFIED OF HR OF 148, ASYMPTOMACIC TACHYCARDIA. WANTING NO INTERVENTION AT THIS TIME. HAS IVF INFUSING, PT AFIBRILE AND WBC WNL. WILL CONT TO ANGELIKA
--- NOTE | 2021-02-15 10:54 | NUR ---
SPOKE WITH DR CUNNINGHAM AT THE PT'S BEDSIDE. TOLD THAT WOUND CARE CONSULT RN RECOMMENDED SURGICAL CONSULT FOR PT'S BACKSIDE WOUND. ALSO AWARE OF PT'S HR IN THE 140'S, ASYMPTOMATIC TACHYCARDIA.
--- NOTE | 2021-02-15 17:28 | NUR ---
Reviewed current orders with Dr. Sintia Dinero, and made appropriate changes for comfort care. Pt is able to have oral nutrition if she so chooses, for comfort and/or pleasure. Bedside RN v/u.
--- NOTE | 2021-02-15 20:20 | NUR ---
PT MEDICATED FOR PAIN, ANY MOVEMENT PT SHOWS OVERT SIGNS OF GRYING AND GRIMACE AND TIGHTENING UP. CHANGED DRESSING TO SACRUM, CLEANSED FIRST WITH NS, DRIED, SKIN PREP TO INTACT SKIN, MEPILEX. WOUND IS AUTOLYTICALLY DEPREIDING AND ABLE TO PULL SLOUGH OFF WITH EPITHEILAL TISSUE UNDERNEITH. COMFORT CARE STARTED BUT CONT WITH ABX, ORDER TO DC NUTRITION/ WILL DC CLINIMIX.
--- NOTE | 2021-02-15 20:23 | NUR ---
PALL RN CALLED AND INFORMED OF CC ORDERS. SHE IS GOING TO CLARIFY ORDERS INCLUDING WEATHER OR NOT TH CONT CLINIMIX. STATES THAT DR CUNNINGHAM DISCUSSED WITH FAMILY AND WE WOULD ALLOW TOLERATED AND TO CONT CLINIMIX AND ABX TX. ALSO ADD CC MEDS FOR COMFORT. WILL REPORT TO NOC KALEIGH.
--- NOTE | 2021-02-16 06:01 | NUR ---
SHIFT SUMMARY PT IS LETHARGIG AND RESTLESS.PT RESPONDS TO ONLY PHYSICAL STIMULATION. PT IS BED BOUND WITH LARGE PRESSURE ULCED ON HER BUTTOCK WHICH IS COVERED WITH MEOILEX. WHEN PT TOUCHED , SHE GETS MAD AND SHOUTING SOME WORDS. PT WAS REPOSITIONNED AND CHANGED NEEDED. EVERYTIMES PT NEEDS TO BE CHANGED OR REPOSITIONED , PT BECAME TENSE AD GRIMACED. PAIN MED WAS GIVEN NEEDED.ALL IVS MED WERE GIVEN BUT PO MED HELD DUE TO RISQ OF ASPIRATION.PT IS RESTING NOW ,APPEARS COMFORTABLE . BED IN LOWER POSITION AND CALL LIGHT IN REACH. WILL CONTINUE TO MONITOR
--- NOTE | 2021-02-16 17:05 | NUR ---
DAY SHIFT SUMMARY COMFORT CARE PT, 75 YEAR OLD FEMALE. REPOSITIONING DONE Q2H WITH COMFORT CARE MEASURES, ROCHE IN PLACE, INTACT, DRAINING BY GRAVITY. MEPILEX TO SACRAL ULCER. PT REMAINS NPO, NON-VERBAL, NON-RESPONSIVE. NO CANGES WITH PT THIS SHIFT. EDWIN CAME FOR BRIEF VISIT DURING VISITING HOURS.
--- NOTE | 2021-02-17 07:29 | NUR ---
SHIFT SUMMARY ASSUMED CARE AT 1900. PT REMAINS ON COMFORT CARE. TURNED AND REPOSITIONED Q2H. RUE POWERGLIDE AND LFA IV INFUSING, SITES BENIGN. ROCHE CATHETER PATENT, DRAINING URINE VIA GRAVITY. PT MEDICATED FOR PAIN X1. BILATERAL FOAM HEEL PROTECTORS IN PLACE AND SACRAL FOAM DRESSING INTACT. BED IN LOW POSITION WITH THE CALL LIGHT WITHIN EASY REACH.
--- NOTE | 2021-02-17 17:20 | NUR ---
pt seen this morning no grimare respirations deep and slightly elevated. Pt still on IV feedings. Review with nursing risks and complications she updated physicians and nutirition and lipids discontinued. Will continue to monitor.
--- NOTE | 2021-02-17 17:33 | NUR ---
DAY SHIFT SUMMARY COMFORT CARE. PT NONVERBAL, NONRESPONSIVE. PAIN JUDGED BY FACIAL GRIMICING AND MEDICATED PER EMAR. PT ABLE TO BE REPOSTITIONED WITH ASSISTANCE Q2H, ORAL CARE PROVIDED ALONG WITH PAIN MEDICATIONS. WILL CONTINUE TO MONITOR THROUGH REMAINDER OF SHIFT.
--- NOTE | 2021-02-18 06:45 | NUR ---
SHIFT SUMMARY ASSUMED CARE AT 1900. PT REMAINS ON COMFORT CARE. TURNED AND REPOSITIONED Q2H. ORAL CARE PROVIDED. SACRAL/BUTTOCK DRESSING CHANGED AT 0200. PT MEDICATED FOR PAIN X1 DURING SHIFT. NO SIGNS OF AIR HUNGER/LABORED BREATHING. LFA IV & RUE POWERGLIDE W/ DRESSINGS INTACT, FLUSHES WITH EASE. ROCHE CATHETER PATENT, DRAINING URINE VIA GRAVITY. BED IN LOW POSITION WITH THE CALL LIGHT WITHIN REACH. WILL CONTINUE TO MONITOR.
--- NOTE | 2021-02-18 18:49 | NUR ---
SHIFT SUMMARY PT REMAINS ON COMFORT CARE. MOSTLY NONRESPONSIVE. PT DOES RESPOND TO NOXIOUS STIMULI AND MOAN WITH ANY MOVEMENT OR REPOSITIONING. PT MEDICATED PER EMAR NEEDED, WHICH APPEARS TO BE EFFECTIVE. PT RESTS QUIETLY UNTIL MOVED. ORAL CARE DONE; PT DOESN'T SEEM TO LIKE IT AND CLAMPS DOWN WITH MOUTH AND DOES NOT ALLOW IT AFTER INITIAL ENTRANCE. WILL CONTINUE TO MONITOR AND REPORT OFF TO ONCOMING RN.
--- NOTE | 2021-02-18 19:28 | NUR ---
pt seen twice today. respiration even nurse medicated for grimage and aggitation.
--- NOTE | 2021-02-18 23:42 | NUR ---
Comfort Care Patient on comfort care no vital signs needed at this time.
--- NOTE | 2021-02-19 06:19 | NUR ---
SHIFT SUMMARY ASSUMED CARE AT 1900. PT REMAINS ON COMFORT CARE. UNRESPONSIVE EXCEPT WHEN BEING TURNED/REPOSITIONED, HAVING PERICARE OR ATTENDS CHANGED OR RECEVIVING ORAL CARE WITH SUCTIONING. PT MEDICATED ONCE FOR EPISODE OF DYSPNEA AND PAIN- PT WAS TENSE, GRIMACING AND MOANING. MEDICATED DARIUSZ PRN ROXANOL WITH GOOD EFFECT. PT TURNED AND POSITIONED Q2H. ROCHE CATHETER PATENT, DRAINING URINE VIA GRAVITY. SACRAL DRESSING INTACT. BED IN LOW POSITION WITH THE CALL LIGHT WITHIN EASY REACH. WILL CONTINUE TO MONITOR.
--- NOTE | 2021-02-19 13:35 | NUR ---
Comfort care visit today. Spoke with nursing and rec'd an update. Pt does not respond to verbal cues or light touch. Right foot cool to touch. No mottling noted. Pedal pulses bounding, rate in mid 130s. RR even and unlabored at 20/min. Nursing reports occasional rattle noted that sometimes clears with suctioning. Will speak with MD to order atropine and scopolamine prn for excessive secretions. No family at bedside. Pt medicated for pain by nurse. PC to continue to follow for symptom manamgement. CM is working with pt's grandson, Miguel Angel, and [employer] for a safe discharge plan for pt.
--- NOTE | 2021-02-19 18:26 | NUR ---
SHIFT SUMMARY PT DECLINED SOME TODAY. DID NOT OPEN EYES WITH REPOSITIONING SHE HAD YESTERDAY. RR INCREASED AND THEN SLOWED WITH HR SIGNIFICANTLY INCREASING. PT MEDICATED PER EMAR THRU OUT THE DAY. REPOSITIONED TO ALLOW PT TO BE COMFORTABLE POSSIBLE. PT ALLOWED ORAL CARE TODAY FOR THE MOST PART, NOT CLAMPLING DOWN OFTEN AND OPENING MOUTH BACK UP QUICKLY. PALLIATIVE CARE HERE TO CK ON PT. NEW ORDERS PLACED AND ADMINISTERED. NO FAMILY AGAIN TODAY. WILL CONTINUE TO MONITOR.
--- NOTE | 2021-02-20 08:32 | NUR ---
SUMMARY PT HAVING SOME APNEAC PERIODS.
--- NOTE | 2021-02-20 17:27 | NUR ---
Pt is no longer responsive, and doesn't open her eyes. She is somnolent. She is no longer eating or drinking. She requires assistance with turning at regular intervals, and is requiring pain medication intermittently. Pt's grandson Emanuel is attempting to gain temporary guardianship so will be able to purchas a new vehicle. Will discuss this further tomorrow.
--- NOTE | 2021-02-20 18:12 | NUR ---
SHIFT SUMMARY PT SOMNOLENT. PT CLAMPS DOWN MOUTH W/ ORAL CARE/SL ADMIN MEDS, OTHER FRAUSTO NO AROUSAL W/ STIMULUS. RESTING IN BED COMFORTABLY T/O SHIFT. COMFORT ASSESSED Q2H T/O SHIFT. RESP SECRETIONS IMPROVED W/ SCOPALOMINE PATCH. ROCHE DRAINING ESTELLE COLORED URINE TO GRAVITY. CALL LIGHT W/IN REACH.
--- NOTE | 2021-02-20 23:54 | NUR ---
RERMAINS ON COMFORT CARE. SEE MAR FOR MEDS GIVEN
--- NOTE | 2021-02-21 | NUR ---
RESTING QUUIETLY. NO NOTED ACUTE DISTRESS. CALL LIGHT IN REACH.
--- NOTE | 2021-02-21 00:01 | NUR ---
CONTINUES TO REST WITH EYES CLOSED. RESP SOUNDS SLIGHTLY CONGESTED AND SHALLOW. CALL LIGHT IN REACH. NO NOTED S/S ACUTE PAIN
--- NOTE | 2021-02-21 03:19 | NUR ---
WAS REPOSTIONED. ORAL CARE DONE, BUT PT BIT DOWN AND WOULDNT ALLOW NURSE TO GET SUCTION APPARATUS IN MOUTH. NO NOTED S/S ACUTE PAIN. RESPS CONTINUE TO BE SLIGHTLY WET. SCOPAL PATCH IN USE. CALL LIGHT IN REACH
--- NOTE | 2021-02-21 04:04 | NUR ---
CORRECTIVE THERAPY AIDE TEACHER SUMMARY REMAINS IN COMFORT CARE. RESTING QUIETLY, RESPS EVEN BUT SHALLOW. SCOPAL PATCH IN USE, RESPS LESS MOIST. ROCHE DRAINING DARK ESTELLE. SOME RESISTANCE TO ORAL CARE. CALL LIGHT IN REACH
--- NOTE | 2021-02-21 04:45 | NUR ---
CONTINUES TO REST QUIETLY. EYES CLOSED. BREATHS SHALLOW BUT EVEN. CALL LIGHT IN REACH
--- NOTE | 2021-02-21 06:10 | NUR ---
RESTING QUIETLY. RESPS EVEN. CALL LIGHT IN REACH
--- NOTE | 2021-02-21 17:40 | NUR ---
After todays visit with the patent, I placed call to Victorino, pt's grandson. I let him know the pt appears to be transitioning, and that if he is planning to see her, he will need to come sooner than later, He verbalized understanding. Pt was medicated prior to being turned and changed. I will remain available.
--- NOTE | 2021-02-21 19:22 | NUR ---
Spiritual Care Visit. Referred by floor nurse. Pt. is in comfort care and not responsive. Grandson is present. Staff concerned about how grandson is processing the situation. Daughter of pt. was on speaker phone. Pastoral prayer was given. Grandson displays understanding and verbalized gratitude for my visit.
--- NOTE | 2021-02-21 19:59 | NUR ---
EDWIN AT BEDSIDE. PT RESTING QUIETLY. CALL LIGHT IN REACH
--- NOTE | 2021-02-21 23:42 | NUR ---
GRANDSON LEFT EARLIER. PT CONTINUES TO REST QUIETLY. REPOSITIONED INTERMITTENTLY FOR COMFORT. RESPS EVEN BUT SHALLOW. CALL LIGHT IN REACH
--- NOTE | 2021-02-21 23:43 | NUR ---
RESTING QUIETLY. RESPS SHALLOW. CALL LIGHT IN REACH
--- NOTE | 2021-02-22 01:57 | NUR ---
ROXINOL EFFECTIVE, RESPS MORE EVEN, STILL NOTE SOME SLIGHT CONGESTION WITH RESPS. CALL LIGHT IN REACH
--- NOTE | 2021-02-22 03:05 | NUR ---
SENIOR OFFICER SUMMARY REMAINS ON COMFORT CARE. RESPS SHALLOW AND OCCASIONALLY SEEM CONGESTED. RECEIVED ROXINOL FOR APPARENT AIR HUNGER WHICH SEEMED TO BE EFFECTIVE. BROOKE WAS AT PT CEMENT SIDE LASTER AT SHIFT COMMENCE BUT LAFT A WHILE LATER. REPOSITIONED FOR COMFORT AND ORAL CARE ATTEMPTED BUT PT CONTINUES TO RESIST IT. CALL LIGHT IN REACH
--- NOTE | 2021-02-22 04:39 | NUR ---
RESTING QUIETLY. CALL LIGHT IN REACH
--- NOTE | 2021-02-22 06:05 | NUR ---
RESTING QUIETLY. SHALLOW BREATHS. CALL LIGHT IN REACH
--- NOTE | 2021-02-22 17:25 | NUR ---
Pt appears to be resting comfortably; receiving roxanol as needed for s/s of pain. Her face is relaxed, no furrowing of brows or moaning. Updated pt's grandson Emanuel, he came in to see her last evening and states he can "tell she isn't going to wake up", and agrees she looked comfortable at his visit with her. No changes needed to care plan at this time. Will continue to monitor, and will remain available.
--- NOTE | 2021-02-22 17:30 | NUR ---
PATIENT PREMEDICATED FOR REPOSITIONING. WOUND TO COCCYX CLEANSED AND NEW MEPILEX DRESSING APPLIED. ROCHE TO GRAVITY. SECRETIONS IMPROVED WITH SCOPALOMINE PATCH. NO FAMILY AT BEDSIDE THIS SHIFT. ROXINOL HELING WITH PAIN AND AIR HUNGER.
--- NOTE | 2021-02-23 03:41 | NUR ---
SHIFT SUMMARY PATIENT ON COMFORT CARE. SOMNOLENT T/O SHIFT. BEDREST AND NPO. NO S/SX OF PAIN AND N/V. ROCHE PATENT AND DRAINING TO GRAVITY. CALL LIGHT IN REACH. BED IN LOWEST POSITION. WILL CONTINUE TO MONITOR UNTIL DAY SHIFT NURSE ASSUMES CARE.
--- NOTE | 2021-02-23 13:44 | NUR ---
Spiritual Care visit. Pt. was alone and resting comfortably. Pt. was non responsive. Devotional Words and Pastoral Prayer was shared.
--- NOTE | 2021-02-23 15:20 | NUR ---
Comfort Care Visit Pt resting in bed with her eyes closed. Pt is minimally responsive to gentle verbal stimuli. Pt appears comfortable with no S/S of distress at this time. Spoke with Primary RN Say and discussed case. Palliative Care will remain available.
--- NOTE | 2021-02-23 16:56 | NUR ---
SHIFT SUMMARY PT DID NOT RESPOND TO VERBAL STIMULUS, WOULD FLUTER EYELIDS AND MOAN DURING REPOSITIONING. ON BEDREST AND NPO, PT DID NOT ATTEMPT ANY MOVEMENT, REPOSITIONED THROUGHOUT SHIFT BY STAFF. ROCHE IN PLACE, DRAINING TO GRAVITY, CONTINUES TO HAVE OUTPUT. CALL LIGHT WITHIN REACH WITH MUSIC CHANNEL PLAYING SOFTLY. NO SIGNS OF ACUTE DISTRESS, NO DYSPNEA, SCOPOLAMINE PATCH REPLACED THIS SHIFT.
--- NOTE | 2021-02-24 04:16 | NUR ---
SHIFT SUMMARY ADMITTED FOR UTI/SEPSIS. DNR CODE. NOW COMFORT CARE. PLAN IS FOR PLACEMENT ON HOSPICE IN A FACILITY. SHE HAS A POWERGLIDE IN RUE. ROCHE IS IN PLACE. SHE IS ON RA. SHE IS ON BEDREST. WE ARE Q2 TURNING HER. A SCOPALAMINE PATCH IS BEHIND HER LEFT EAR. SHE HAS RESTED COMFORTABLY THIS SHIFT. NO S/SX OF DISTRESS.
--- NOTE | 2021-02-24 09:28 | NUR ---
Comfort Care Visit Pt resting in bed and is non responsive to gentle verbal stimuli. Pt appears comfortable with no S/S of distress at this time. Spoke with Primary RN Cecilia and discussed case. Palliative Care will remain available.
--- NOTE | 2021-02-24 17:21 | NUR ---
NO CHANGES AT THIS TIME. PT HAS JUST SLEEP. ONLY MAKES PAIN NOISES WHEN TURNED. PT COMFORTABLE AT THIS TIME WILL CONTINUE TO MONITOR.
--- NOTE | 2021-02-24 18:21 | NUR ---
Spiritual Care visit. Pt. is non responsive and has moved to shallow breathing. Pt. is alone. Sat with Pt. reading Psalms, and provided calming words. Prayed a benediction over the pt.
--- NOTE | 2021-02-25 05:20 | NUR ---
SHIFT SUMMARY PT HAD AN UNEVENTFUL NIGHT. MOSTLY UNRESPONSIVE. MOANS WITH MOVEMENT. OTHERWISE APPEARS TO BE RESTING COMFORTABLY. UNSTAGEABLE PRESSURE WOUND TO COCCYX. VERY FOUL ODOR. DRESSING CHANGED. ROCHE CATHETER PATENT AND DRAINING. NO FAMILY AT BEDSIDE THIS EVENING. WILL CONTINUE TO MONITOR.
--- NOTE | 2021-02-25 09:34 | NUR ---
Comfort Care Visit Pt resting in bed with her eyes closed. Pt is non responsive. Offered gentle voice and therapeutic touch. Pt appears comfortable with no S/S of distress at this time. Spoke with Primary RN Nilda and discussed case. Palliative Care will remain available.
--- NOTE | 2021-02-25 18:06 | NUR ---
COMFORT CARE SUMMARY PATIENT WAS MEDICATED X3 WITH ROXANOL FOR AIR HUNGER. PATIENTS BREATHING CHANGED THROUGHOUT MY SHIFT. PATIENT REMAINS NONRESPONSIVE. PATIENT DOES GROAN OCCASIONALLY. ROCHE PATENT AND DRAINING SMALL AMOUNTS OF URINE. DRESSING FOR WOUND ON COCCYX CHANGED. PATIENT APPEARS COMFORTABLE.
--- NOTE | 2021-02-26 04:58 | NUR ---
SUMMARY RESPIRATIONS SHALLOW THIS EVENING. RAPID AT TIMES. MEDICATED NEEEDED WITH ROXANOL. PT CONTINUES TO BE MOSTLY UNRESPONSIVE. OPENS EYES AND MOANS OCCASSIONALLY, MOSTLY WITH TURNING OR CARE. OTHERWISE JUST RESTS COMFORTABLY. PT HAD A BOWEL MOVEMENT THIS EVENING. DRESSING TO MEPILEX SOILD WITH STOOL SO WAS CHANGED.
--- NOTE | 2021-02-26 08:18 | NUR ---
END OF LIFE PATIENT AT 804. CONFIRMED WITH 2ND RN. CHARGE NURSE NOTIFIED. DR. CUEVA NOTIFIED. JELLY PINEDA CALLED. EDWIN CONFIRMED THE PERFERRED RESIDENTIAL TO BE [facility]. ROCHE REMOVED. IV REMOVED PRIOR.
== END 2021-02-26 08:05 | DRG 871 ==
LOC: ER 11:01 → MEDS 15:04 → PCU 15:04 → ERHOLD 15:04 → PCU 18:17 → MEDS 02-13 10:50
PROVIDERS: Family Medicine; Nurse Practitioner Acute Care; Student in an Organized Health Care Education/Training Program; ADMIT Internal Medicine
DX: A41.52 Sepsis due to Pseudomonas (principal); G92.8 Other toxic encephalopathy; R65.21 Severe sepsis with septic shock; N39.0 Urinary tract infection, site not specified; N17.9 Acute kidney failure, unspecified; E87.2 Acidosis; Z51.5 Encounter for palliative care; Z66 Do not resuscitate; L89.320 Pressure ulcer of left buttock, unstageable; L89.310 Pressure ulcer of right buttock, unstageable; E83.42 Hypomagnesemia; E87.5 Hyperkalemia; R63.0 Anorexia; Z68.28 Body mass index [BMI] 28.0-28.9, adult; K21.9 Gastro-esophageal reflux disease without esophagitis; E78.5 Hyperlipidemia, unspecified; J44.9 Chronic obstructive pulmonary disease, unspecified; M54.9 Dorsalgia, unspecified; G89.29 Other chronic pain; F32.A Depression, unspecified; I25.2 Old myocardial infarction; I25.10 Atherosclerotic heart disease of native coronary artery without angina pectoris; F03.90 Unspecified dementia, unspecified severity, without behavioral disturbance, psychotic disturbance, mood disturbance, and anxiety; Z74.01 Bed confinement status; Z88.0 Allergy status to penicillin; Z88.8 Allergy status to other drugs, medicaments and biological substances; Z98.890 Other specified postprocedural states; Z79.82 Long term (current) use of aspirin; Z79.84 Long term (current) use of oral hypoglycemic drugs; Z79.899 Other long term (current) drug therapy
CPT/HCPCS: 36415; 51702; 80048; 80053; 81001; 82947; 83605; 83735; 85025; 87040; 87077; 87086; 87186; 93005; 93010; 94640; 94760; 96365-59; 96375-59; 99285-25; A9270; C1751; J0610; J0696; J0713; J1644; J1815; J3010; J3475; J7030; J7120; J7799